=== PATIENT | male | born 1970 | race Caucasian/White ===

== ENCOUNTER 2018-07-31 19:07 | Emergency (ER) | payer SELFPAY ==
[~2018-07-31] VITALS: Ht 167.6 cm; Wt 97.5 kg
--- NOTE | 2018-07-31 19:07 | NUR ---
GONZALEZ ANDERSON ALS TO ER BED 02
--- NOTE | 2018-07-31 19:15 | NUR ---
BIBA FOR ETOH INTOXICATION. PT STATES HE HAS A DULL NON RADIATING CHEST PAIN TO THE EPIGASTRIC AREA 08/22 THAT STARTED TODAY. PT REPORTS N/V AND DRINKING 3 "32 OZ" BEERS. SKIN IS PINK/WARM/DRY; AAOX4 WITH STEADY GAITPATIENT POSITIONED FOR COMFORT; HOB ELEVATED; BEDRAILS UP X1; BED DOWN. ER MD MADE AWARE OF PT STATUS.
[2018-07-31 19:16] VITALS: BP 174/95
--- NOTE | 2018-07-31 19:45 | NUR ---
URINE COLLECTED AND SENT TO LAB
[2018-07-31 20:07] LABS: BASOPHILS % (AUTO) 0.5 % (0.0-2.0); EOSINOPHILS % (AUTO) 0.1 % (0.0-4.0); HEMATOCRIT 45.6 % (36-52); HEMOGLOBIN 15.7 g/dL (12.0-18.0); LYMPHOCYTES # (AUTO) 2.3 K/uL (2.0-11.5); LYMPHOCYTES % (AUTO) 34.6 % (20.5-51.1); MEAN CORPUSCULAR HEMOGLOBIN 28 pg (27-31); MEAN CORPUSCULAR HGB CONC 34 g/dL (33-37); MEAN CORPUSCULAR VOLUME 82.4 fL (80-94); MONOCYTES # (AUTO) 0.4 K/uL (0.8-1.0); MONOCYTES % (AUTO) 6.5 % (1.7-9.3); NEUTROPHILS # (AUTO) 3.8 K/uL (1.8-7.7); NEUTROPHILS % (AUTO) 58.3 % (42.2-75.2); PLATELET COUNT (AUTO) 249 K/uL (140-450); RED BLOOD CELL COUNT(AUTO) 5.54 MIL/uL (4.20-6.10); RED CELL DISTRIBUTION WIDTH 14.7 % (11.6-13.7); WHITE BLOOD COUNT (AUTO) 6.6 K/uL (4.8-10.8)
[2018-07-31 20:19] LABS: POTASSIUM 4.1 mmol/L (3.5-5.1)
[2018-07-31 20:20] LABS: ALBUMIN 3.6 g/dL (3.4-5.0); ANION GAP 16.2 (8-16); CARBON DIOXIDE 28.9 mmol/L (21-32); TOTAL BILIRUBIN 0.9 mg/dL (0.0-1.0)
[2018-07-31 20:32] VITALS: BP 176/98
--- NOTE | 2018-07-31 21:36 | NUR ---
JUSTIN, Patient presented to facility under the influence of Alcohol. Patient is currently ambulatory with steady gait, able to walk unassisted. Positive gag reflex. Alert and oriented. Is not driving self for discharge out of facility. PT LWBS.
--- NOTE | 2018-07-31 21:36 | NUR ---
PATIENT LEFT WITHOUT BEING SEEN BY DR. BRAY. NO FURTHER CARE PROVIDED FOR PATIENT. PT LEFT FROM BED 2, AMBULATED WITHOUT PROBLEMS.
== END 2018-07-31 21:36 | disposition left against medical advice (07) ==
LOC: MED 19:07
DX: F10.129 Alcohol abuse with intoxication, unspecified (principal); R11.2 Nausea with vomiting, unspecified; R10.13 Epigastric pain; Z53.21 Procedure and treatment not carried out due to patient leaving prior to being seen by health care provider
CPT/HCPCS: 36415; 80053; 83690; 85025; 99281